=== PATIENT | male | born 1960 | race Caucasian/White ===

== ENCOUNTER 2018-08-01 18:24 | Emergency (ER) | payer BC, OTHER ==
[2018-08-01 18:42] VITALS: BMI 29.8
--- NOTE | 2018-08-01 19:17 | C.PDOC ---
History Of Present Illness The patient, who was recently diagnosed with prostate cancer, presents to the ED for evaluation of painful urination which began this morning. Patient also reports seeing slight blood after having bowel movements. He denies fever, ch ills, abdominal pain. Time Seen by Provider: 08/01/18 19:17 Chief Complaint (Nursing): Male Genitourinary History Per: Patient History/Exam Limitations: no limitations Onset/Duration Of Symptoms: Hrs Current Symptoms Are (Timing): Still Present Severity: Mild Pain Scale Rating Of: 2 Quality Of Discomfort: "Pain" Associated Symptoms: Urinary Symptoms (painful urinartion ). denies: Fever, Chills Alleviating Factors: None Recent travel outside of the [place]: No Additional History Per: Patient Past Medical History Reviewed: Historical Data, Nursing Documentation, Vital Signs Vital Signs: Last Vital Signs Temp 97.5 F L 08/01/18 18:29 Pulse 70 08/01/18 18:29 Resp 18 08/01/18 18:29 BP 175/106 H 08/01/18 18:29 Pulse Ox 99 08/01/18 18:29 - Medical History PMH: HTN Surgical History: No Surg Hx Family History: States: No Known Family Hx - Social History Hx Alcohol Use: No Hx Substance Use: No - Immunization History Hx Tetanus Toxoid Vaccination: No Hx Influenza Vaccination: No Hx Pneumococcal Vaccination: No Review Of Systems Constitutional: Negative for: Fever, Chills Cardiovascular: Negative for: Chest Pain, Palpitations Respiratory: Negative for: Cough, Shortness of Breath Gastrointestinal: Positive for: Other (slight blood after bowel movement). Negative for: Nausea, Vomiting, Abdominal Pain, Diarrhea, Constipation Genitourinary: Positive for: Other (painful urination ). Negative for: Hematuria Musculoskeletal: Negative for: Back Pain Skin: Negative for: Rash, Lesions, Jaundice, Bruising Neurological: Negative for: Weakness, Numbness Physical Exam - Physical Exam Appears: Non-toxic, No Acute Distress Skin: Warm, Dry Head: Normacephalic Eye(s): bilateral: Normal Inspection Oral Mucosa: Moist Neck: Supple Chest: Symmetrical, No Deformity, No Tenderness Cardiovascular: Rhythm Regular, No Murmur Respiratory: No Rales, No Rhonchi, No Wheezing Gastrointestinal/Abdominal: Soft, No Tenderness, No Guarding, No Rebound Rectal: Heme Negative, No Hemorrhoids, Other (? smal lfissure) Extremity: Normal ROM, Capillary Refill (less than 2 seconds ) Neurological/Psych: Oriented x3 ED Course And Treatment - Laboratory Results Result Diagrams: 08/01/18 19:48 08/01/18 19:48 O2 Sat by Pulse Oximetry: 99 (on RA ) Pulse Ox Interpretation: Normal Progress Note: Bloodwork and urinalysis ordered and reviewed. Reevaluation Time: 22:14 Disposition Counseled Patient/Family Regarding: Studies Performed, Diagnosis, Need For Followup, Rx Given - Disposition Disposition: HOME/ ROUTINE Disposition Time: 19:17 Condition: FAIR Additional Instructions: Please follow up with your doctor and urologist Instructions: Dysuria, Adult (DC), Prostate Cancer Forms: [employer] (Croatian) - Clinical Impression Clinical Impression: Dysuria, Prostate cancer - Scribe Statement The provider has reviewed the documentation as recorded by the Scribe (Vania Fernandez) Provider Attestation: All medical record entries made by the Scribe were at my direction and personally dictated by me. I have reviewed the chart and agree that the record accurately reflects my personal performance of the history, physical exam, medical decision making, and the department course for this patient. I have also personally directed, reviewed, and agree with the discharge instructions and disposition.
[2018-08-01 19:59] LABS: BASO # 0.1 K/uL (0.0-0.2); BASO % 0.7 % (0.0-2.0); EOS # 0.2 K/uL (0.0-0.7); EOS % 1.7 % (0.0-4.0); LYMPH # 3.7 K/uL (1.0-4.3); LYMPH % 35.5 % (20.0-40.0); MEAN CELL VOLUME 93.1 fL (80.0-94.0); MEAN CORPUSCULAR HEMOGLOBIN 30.8 pg (27.0-31.0); MEAN CORPUSCULAR HGB CONC 33.1 g/dL (33.0-37.0); MEAN PLATELET VOLUME 9.4 fL (7.2-11.7); MONO # 0.9 K/uL (0.0-0.8); MONO % 8.1 % (0.0-10.0); NEUT # 5.7 K/uL (1.8-7.0); RBC 5.2 Mil/uL (4.40-5.90); RED CELL DISTRIBUTION WIDTH 14.9 % (11.5-14.5); WHITE BLOOD COUNT 10.6 K/uL (4.8-10.8)
[2018-08-01 20:08] LABS: PROTHROMBIN TIME 10.8 SECONDS (9.7-12.2)
[2018-08-01 20:13] LABS: ALB/GLOB RATIO 1.2 (1.0-2.1); ALBUMIN 4.4 g/dL (3.5-5.0); BLOOD UREA NITROGEN 25 mg/dL (9-20); CALCIUM 9.2 mg/dl (8.6-10.4); GFR NON-AFRICAN AMERICAN > 60; LIPASE 489 U/L (23-300)
[2018-08-01 20:16] VITALS: BP 128/82; PULSE 66; RESP 20; TEMP 98.6
[2018-08-01 20:16] LABS: URINE BILIRUBIN NEGATIVE (NEGATIVE); URINE BLOOD NEGATIVE (NEGATIVE); URINE CLARITY Clear (Clear); URINE COLOR Yellow (YELLOW); URINE GLUCOSE (UA) NORMAL (Normal); URINE LEUKOCYTE ESTERASE NEG Leu/uL (Negative); URINE PROTEIN 3+ mg/dL (NEGATIVE); URINE UROBILINOGEN NORMAL mg/dL (0.2-1.0)
[2018-08-01] MEDS ORDERED: Sodium Chloride 0.9% 1,000 ML IV ONE (20:20)
[2018-08-01] MEDS ORDERED: Sodium Chloride 0.9% 1,000 ML ONE (20:27)
[2018-08-01 20:28] LABS: ALT/SGPT 39 U/L (21-72); AST/SGOT 42 U/L (17-59)
[2018-08-01] MEDS ORDERED: Iohexol 300 100 ML IJ ONE (20:54)
[2018-08-01 22:15] VITALS: O2SAT 99
--- NOTE | 2018-08-02 10:05 | CT ---
Date of service: 08/01/2018 PROCEDURE: CT Abdomen and Pelvis with contrast HISTORY: Abdominal pain, prostate cancer,? Rectal bleed COMPARISON: None available. TECHNIQUE: CT scan of the abdomen and pelvis was performed after administration of intravenous contrast. Oral contrast was not administered. Coronal and sagittal reformatted images were obtained. Contrast dose: 100 mL Omnipaque 300 in the left the history Radiation dose: Total exam DLP = 1091.29 mGy-cm. This CT exam was performed using one or more of the following dose reduction techniques: Automated exposure control, adjustment of the mA and/or kV according to patient size, and/or use of iterative reconstruction technique. FINDINGS: LOWER THORAX: There is subsegmental atelectasis in the lingula. The lung bases are clear. LIVER: Mild hepatomegaly and fatty liver. Normal homogeneous enhancement. No gross lesion or ductal dilatation. GALLBLADDER AND BILE DUCTS: Well distended. No calcified gallstones, wall thickening or pericholecystic fluid. PANCREAS: Normal in size with homogeneous enhancement. No gross lesion or ductal dilatation. SPLEEN: Normal in size and appearance. ADRENALS: No discrete nodule. KIDNEYS AND URETERS: Normal in size with homogeneous enhancement. No hydronephrosis. Small simple cysts in both kidneys and punctate nonspecific calcifications in the right upper pole. VASCULATURE: No aortic aneurysm. There are no aortic atherosclerotic calcifications or mural plaque present. BOWEL: Evaluation of the bowel is limited in the absence of oral contrast. The small bowel loops are normal in caliber. There is fecalization of small bowel contents. There is left colonic diverticulosis without CT evidence for acute diverticulitis no bowel wall thickening or obstruction. APPENDIX: Normal appendix. PERITONEUM: No free fluid. No free air. LYMPH NODES: No enlarged lymph nodes. BLADDER: Well distended and normal in appearance. REPRODUCTIVE: There is moderate enlargement of heterogeneously enhancing prostate gland with median lobe hypertrophy which indents the base of the urinary bladder. BONES: No acute fracture. Within normal limits for the patient's age. OTHER FINDINGS: There is a small sliding hiatal hernia. There are bilateral small fat containing inguinal hernias. There is a 3.3 x 2.8 cm lobular heterogeneously enhancing mass in the left anterior hemipelvis. IMPRESSION: 1. 3.3 x 2.8 cm lobular heterogeneously enhancing mass in the left anterior hemipelvis nonspecific, the differential considerations include mesenteric metastatic deposit, lymph node mass and soft tissue neoplasms. Clinical follow-up and histopathologic correlation is recommended. 2. Moderate enlargement of heterogeneously enhancing prostate gland. Please correlate with PSA levels. 3. Hepatomegaly and fatty liver. 4. Small sliding hiatal hernia. 5. Left colonic diverticulosis without CT evidence for acute diverticulitis. A preliminary report was provided by [employer]. The final report is tagged to the PA review folder.
== END 2018-08-01 22:34 | disposition home or self-care (01) ==
LOC: C.ER 18:24
DX: R30.0 Dysuria (principal); C61 Malignant neoplasm of prostate
CPT/HCPCS: 74177; 80053; 81001; 83690; 85025; 85610; 85730; 96361; 96374; 99284; C9113; G0328; J7030; Q9967

== ENCOUNTER 2018-08-13 08:26 | Outpatient (CLI) | payer OTHER | END 2018-08-13 08:27 | disposition home or self-care (01) | LOC: C.LAB 08:26 | DX: Z12.5 Encounter for screening for malignant neoplasm of prostate (principal) ==